=== PATIENT | female | born 1980 | race Caucasian/White ===

== ENCOUNTER 2017-12-22 19:58 | Emergency (ER) | payer OTHER ==
[~2017-12-22] VITALS: Ht 165.1 cm; Wt 85.3 kg
[2017-12-22 19:58] VITALS: BP_SYST 109
[2017-12-22 21:30] VITALS: BP_SYST 112
--- NOTE | 2017-12-22 21:45 | NUR ---
PT stated "I don't want to wait any longer I'm going someplace else" Patient left without being seen.
== END 2017-12-23 01:58 | disposition left against medical advice (07) ==
LOC: SED 19:58
DX: S61.219A Laceration without foreign body of unspecified finger without damage to nail, initial encounter (principal); Z53.21 Procedure and treatment not carried out due to patient leaving prior to being seen by health care provider; W26.8XXA Contact with other sharp object(s), not elsewhere classified, initial encounter; Y93.89 Activity, other specified; Y92.89 Other specified places as the place of occurrence of the external cause; Y99.8 Other external cause status

== ENCOUNTER 2019-08-10 10:58 | Emergency (ER) | payer OTHER ==
[~2019-08-10] VITALS: Ht 165.1 cm; Wt 75.7 kg
[2019-08-10 10:58] VITALS: BP_SYST 115
--- NOTE | 2019-08-10 11:00 | NUR ---
BROUGHT BACK TO BED #7 AND TRIAGED. REPORT GIVEN TO FANTA
--- NOTE | 2019-08-10 11:03 | NUR ---
DR SEGURA AT BEDSIDE FOR EVALUATION
--- NOTE | 2019-08-10 11:05 | NUR ---
Pt AAOx4 presents to ED referred from urgent care c/o SOB, cough, difficulty talking, nausea x 3 days with acute exacerbation of symptoms today. Skin pink dry and warm, tachypneic, labored breathing. No other injuries/complaints per pt/noted. at bedside. Will continue to monitor.
[2019-08-10] MEDS ORDERED: IPRATROPIUM/ALBUTEROL SULFATE 3 ML AMPUL.NEB (DUONEB) INH ONE (11:15)
[2019-08-10] MEDS ORDERED: methylPREDNISolone SOD SUCC/PF 62.5 MG/ML VIAL IM ONE (11:15)
--- NOTE | 2019-08-10 11:15 | NUR ---
Pt c/o chest tightness and anxiety s/p solu-medrol IM administration. Pt sitting in high [place] tachypneic. Dr. Todd notified. Orders to be received.
[2019-08-10] MEDS ORDERED: IPRATROPIUM/ALBUTEROL SULFATE 3 ML AMPUL.NEB (DUONEB) ONE (11:19)
[2019-08-10] MEDS ORDERED: KETOROLAC TROMETHAMINE 30 MG VIAL IVP ONE (11:30)
[2019-08-10] MEDS ORDERED: LORazepam 2 MG/ML VIAL IVP ONE (11:30)
--- NOTE | 2019-08-10 11:30 | NUR ---
ER Dr. Todd at bedside re-evaluating patient.
[2019-08-10 11:39] LABS: STREPTOCOCCUS A SCREEN (RAPID) NEGATIVE (NEGATIVE)
[2019-08-10 11:43] LABS: INFLUENZA A&B ANTIGEN SCREEN NEGATIVE FOR A & B (NEGATIVE)
[2019-08-10 11:46] LABS: BASOPHILS # (AUTO) 0.1 K/uL (0.0-0.2); BASOPHILS % (AUTO) 0.8 % (0.0-2.0); EOSINOPHILS # (AUTO) 0.1 K/uL (0.0-0.4); EOSINOPHILS % (AUTO) 1.2 % (0.0-4.0); HEMATOCRIT 37.5 % (36-48); HEMOGLOBIN 12.5 g/dL (12.0-16.0); LYMPHOCYTES # (AUTO) 1.9 K/uL (1.0-5.5); LYMPHOCYTES % (AUTO) 27.9 % (20.5-51.5); MEAN CORPUSCULAR HEMOGLOBIN 28 pg (27-31); MEAN CORPUSCULAR HGB CONC 33 % (32-36); MEAN CORPUSCULAR VOLUME 84 fL (79.0-98.0); MONOCYTES # (AUTO) 0.4 K/uL (0.0-1.0); MONOCYTES % (AUTO) 5.6 % (1.7-9.3); NEUTROPHILS # (AUTO) 4.5 K/uL (1.8-7.7); NEUTROPHILS % (AUTO) 64.5 % (40.0-70.0); PLATELET COUNT (AUTO) 234 K/uL (130-430); RED BLOOD CELL COUNT(AUTO) 4.48 MIL/uL (4.2-6.2); RED CELL DISTRIBUTION WIDTH 15.4 % (9.0-15.0)
--- NOTE | 2019-08-10 12:25 | NUR ---
Daniella rosa maria in [facility] - 08/10/19 at 1225 by [email or web address] assumed
--- NOTE | 2019-08-10 13:39 | NUR ---
Patient given written and verbal discharge instructions and verbalizes understanding. ER MD discussed with patient the results and treatment provided. Patient in stable condition. ID arm band removed. IV catheter removed intact and dressing applied, no active bleeding. Rx of naproxen, albuterol, prednisone given. Patient educated on pain management and to follow up with PMD. Pain Scale . Opportunity for questions provided and answered. Medication side effect fact sheet provided.
[2019-08-10 13:41] VITALS: BP_SYST 123
== END 2019-08-10 13:41 | disposition home or self-care (01) ==
LOC: SED 10:58
DX: R07.9 Chest pain, unspecified (principal); J02.8 Acute pharyngitis due to other specified organisms; F41.9 Anxiety disorder, unspecified; Z90.49 Acquired absence of other specified parts of digestive tract; B97.89 Other viral agents as the cause of diseases classified elsewhere; R51 Headache
CPT/HCPCS: 36415; 71045; 84484; 85025; 85379; 86308; 86403; 86710; 87081; 93005; 94640; 96372; 96374; 96375; 99284; J1885; J2060; J2930; J7620

== ENCOUNTER 2020-09-25 08:14 | Emergency (ER) | payer OTHER ==
[~2020-09-25] VITALS: Ht 165.1 cm; Wt 78.0 kg
[2020-09-25 08:15] VITALS: BP_SYST 116
== END 2020-09-25 10:53 | disposition home or self-care (01) ==
LOC: SED 08:14
DX: S09.90XA Unspecified injury of head, initial encounter (principal); M62.838 Other muscle spasm; W18.39XA Other fall on same level, initial encounter; Y93.89 Activity, other specified; Y92.89 Other specified places as the place of occurrence of the external cause; Y99.8 Other external cause status
CPT/HCPCS: 70450-TC; 72125-TC; 76376; 99285

== ENCOUNTER 2022-11-12 15:21 | Emergency (ER) | payer BC, OTHER ==
[~2022-11-12] VITALS: Ht 165.1 cm; Wt 81.2 kg
[2022-11-12 15:42] VITALS: BP_SYST 130
[2022-11-12] MEDS ORDERED: ONDANSETRON HCL 4 MG/2 ML VIAL IVP ONE ×2 (15:45→17:15)
[2022-11-12] MEDS ORDERED: KETOROLAC TROMETHAMINE 30 MG VIAL IVP ONE (15:45)
[2022-11-12] MEDS ORDERED: NACL 0.9% 1,000 ML IV ONE (15:45)
--- NOTE | 2022-11-12 15:45 | NUR ---
Placed in room 5 . Placed on laboratory monitor, blood pressure machine and pulse oximeter. To gown for exam. Side rails up. Report given to CLARE BLAS.
--- NOTE | 2022-11-12 15:47 | NUR ---
DR. GILL AT BEDSIDE TO ASSESS PT.
[2022-11-12 16:17] LABS: BASOPHILS # (AUTO) 0.1 K/uL (0.0-0.2); BASOPHILS % (AUTO) 0.9 % (0.0-2.0); EOSINOPHILS # (AUTO) 0.1 K/uL (0.0-0.4); HEMOGLOBIN 13.8 g/dL (12.0-16.0); LYMPHOCYTES # (AUTO) 1.9 K/uL (1.0-5.5); LYMPHOCYTES % (AUTO) 31.8 % (20.5-51.5); MEAN CORPUSCULAR HEMOGLOBIN 30 pg (27-31); MEAN CORPUSCULAR HGB CONC 34 % (32-36); MEAN CORPUSCULAR VOLUME 90 fL (79.0-98.0); MONOCYTES # (AUTO) 0.3 K/uL (0.0-1.0); NEUTROPHILS # (AUTO) 3.7 K/uL (1.8-7.7); NEUTROPHILS % (AUTO) 61.3 % (40.0-70.0); PLATELET COUNT (AUTO) 225 K/uL (130-430); RED BLOOD CELL COUNT(AUTO) 4.53 MIL/uL (4.2-6.2); RED CELL DISTRIBUTION WIDTH 12.1 % (9.0-15.0)
--- NOTE | 2022-11-12 16:53 | NUR ---
pt presents to ed c/o possible food poisoning, pt is c/o lower left abd pain that shoots up to middle abd sharp pain according to pt is grimicing and moaning. vss, even unlabored respirations, MD notified of pt pain level
[2022-11-12 16:55] LABS: CREATININE 0.65 mg/dL (0.55-1.30)
--- NOTE | 2022-11-12 16:57 | NUR ---
DR ODOM ORDERED ROCHEPHIN DUE TO LEUKOCYTES FOUND ON HER DIPSTICK. STATED NO NEED FOR BLOOD CULTURES. WILL MEDICATED ORDERED.
[2022-11-12 17:00] LABS: ALBUMIN 3.9 g/dL (3.4-4.8); TOTAL BILIRUBIN 0.5 mg/dL (0.0-1.0)
[2022-11-12] MEDS ORDERED: cefTRIAXone 1 GM in D5W 50 ML IV ONE (17:00)
[2022-11-12] MEDS ORDERED: cefTRIAXone 1 GM VIAL ONE (17:03)
[2022-11-12] MEDS ORDERED: MORPHINE 4 MG INJ. 4 MG/ML VIAL IVP ONE (17:15)
[2022-11-12 17:16] LABS: BILIRUBIN,URINE NEGATIVE (NEGATIVE); CLARITY/URINE CLEAR (CLEAR); COLOR,URINE YELLOW (YELLOW); GLUCOSE,URINE NEGATIVE (NEGATIVE); KETONES,URINE NEGATIVE (NEGATIVE); LEUKOCYTE ESTERASE ,URINE TRACE (NEGATIVE); NITRITE, URINE NEGATIVE (NEGATIVE); PROTEIN URINE NEGATIVE (NEGATIVE); UROBILINOGEN,URINE 0.2 (0.2-1.0)
[2022-11-12 17:22] VITALS: BP_SYST 118
[2022-11-12 17:29] LABS: BLOOD, URINE TRACE (NEGATIVE)
[2022-11-12 17:39] LABS: RBC,URINE 0-3 /HPF (0-3)
[2022-11-12 17:40] LABS: BACTERIA,URINE MANY /HPF (None Seen)
[2022-11-12] MEDS ORDERED: SULF1TAB48 PO (17:51)
[2022-11-12] MEDS ORDERED: IBUP-1971 PO (17:51)
[2022-11-12] MEDS ORDERED: PHEN-726 PO (17:51)
[2022-11-12] MEDS ORDERED: ONDA-8 TL (17:51)
--- NOTE | 2022-11-12 18:25 | NUR ---
Patient given written and verbal discharge instructions and verbalizes understanding. ER MD discussed with patient the results and treatment provided. Patient in stable condition. ID arm band removed. IV catheter removed intact and dressing applied, no active bleeding. Rx of IBUPROFEN, ZOFRAN, PYRIDIUM, AND BACTRIM given. Patient educated on pain management and to follow up with PMD. Opportunity for questions provided and answered. Medication side effect fact sheet provided.
== END 2022-11-12 18:23 | disposition home or self-care (01) ==
LOC: SED 15:21
DX: N39.0 Urinary tract infection, site not specified (principal); R11.10 Vomiting, unspecified; R10.30 Lower abdominal pain, unspecified; Z79.899 Other long term (current) drug therapy
CPT/HCPCS: 99284; 96365; 96375; 96361; 80053; 81000; 84703; 83690; 85025; 87086; 36415; J0696; J1885; J2405; J2270; J7060; J7030

== ENCOUNTER 2023-01-28 20:51 | Emergency (ER) | payer BC ==
[~2023-01-28] VITALS: Ht 165.1 cm; Wt 56.7 kg
[~2023-01-28 20:51] MED LIST: IBUP-1971 PO; ONDA-8 TL; PHEN-726 PO; SULF1TAB48 PO
[2023-01-28 21:00] VITALS: BP_SYST 122
--- NOTE | 2023-01-28 22:52 | NUR ---
Patient to [facility] for evaluation. Side rails up. Report given to EUGENIO BUCKNER.
--- NOTE | 2023-01-28 22:53 | NUR ---
Pt bib self from home, ambulated to [facility]. Pt A&Ox4, able to make needs known. Pt c/o right shoulder pain that radiates to right elbow and across upper back. Pt rates pain 9/10. Pt states she injured right shoulder lifting a heavy oven door on 01/23/2023, heard a "pop" and pain is getting worse. Pt states she went to Urgent Care in the morning and was given a Toradol shot, pt states medication was ineffective. Pt states she took Tylenol [id number] at 1600. Pt denies fever and chills, SOB and chest pain. Pt denies N/V/D. Safety measures in place.
--- NOTE | 2023-01-28 22:56 | NUR ---
ER Dr. Morel at bedside examining patient.
[2023-01-28] MEDS ORDERED: PRED20TA PO (22:59)
[2023-01-28] MEDS ORDERED: HYDR-3917 PO (22:59)
[2023-01-28] MEDS ORDERED: IBUP-1969 PO (22:59)
[2023-01-28] MEDS ORDERED: predniSONE 20 MG TABLET PO ONE (23:00)
[2023-01-28 23:17] VITALS: BP_SYST 120
--- NOTE | 2023-01-28 23:17 | NUR ---
dPatient given written and verbal discharge instructions and verbalizes understanding. ER Dr Morel discussed with patient the results and treatment provided. Patient in stable condition. ID arm band removed. Rx of [place], Motrin, Prednisone given. Patient educated on pain management and to follow up with PMD. Pain Scale 2/10. Opportunity for questions provided and answered. Medication side effect fact sheet provided.
[2023-01-29] MEDS ORDERED: OXYC-128 PO (17:41)
== END 2023-01-28 23:17 | disposition home or self-care (01) ==
LOC: SED 20:51
DX: M77.8 Other enthesopathies, not elsewhere classified (principal); M25.511 Pain in right shoulder; Z79.899 Other long term (current) drug therapy
CPT/HCPCS: 99283; J7512

== ENCOUNTER 2024-07-27 00:22 | Inpatient (IN) | payer BC ==
[~2024-07-27] VITALS: Ht 162.6 cm; Wt 72.6 kg
[~2024-07-27 00:22] MED LIST changes: +HYDR-3917 PO; +IBUP-1969 PO; +OXYC-128 PO; +PRED20TA PO
[2024-07-27 00:30] VITALS: BP_SYST 157; PULSE 87; RESP 18; O2SAT 98
[2024-07-27] MEDS ORDERED: DIPHENHYDRAMINE INJ 50 MG/ML VIAL ONE ×2 (00:37→00:40)
[2024-07-27] MEDS ORDERED: HALOPERIDOL LACTATE 5 MG/ML VIAL ONE (00:37)
[2024-07-27] MEDS: DIPHENHYDRAMINE INJ 50 MG/ML VIAL IVP ONE ×3 (00:44→02:45)
[2024-07-27] MEDS: NACL 0.9% 1,000 ML IV ONE ×2 (00:44→05:10)
[2024-07-27] MEDS: HALOPERIDOL LACTATE 5 MG/ML VIAL IVP ONE ×3 (00:44→02:44)
[2024-07-27] MEDS: LORazepam 2 MG/ML VIAL IVP ONE (02:25)
[2024-07-27 02:54] LABS: BASOPHILS % (AUTO) 0.3 % (0.0-2.0); EOSINOPHILS % (AUTO) 0.2 % (0.0-4.0); HEMATOCRIT 35.9 % (36-48); LYMPHOCYTES # (AUTO) 1.6 K/uL (1.0-5.5); LYMPHOCYTES % (AUTO) 20.4 % (20.5-51.5); MEAN CORPUSCULAR HEMOGLOBIN 28 pg (27-31); MEAN CORPUSCULAR HGB CONC 33 % (32-36); MEAN CORPUSCULAR VOLUME 83 fL (79.0-98.0); MONOCYTES # (AUTO) 0.4 K/uL (0.0-1.0); MONOCYTES % (AUTO) 4.8 % (1.7-9.3); NEUTROPHILS # (AUTO) 5.9 K/uL (1.8-7.7); NEUTROPHILS % (AUTO) 74.3 % (40.0-70.0); PLATELET COUNT (AUTO) 245 K/uL (130-430); RED BLOOD CELL COUNT(AUTO) 4.32 MIL/uL (4.2-6.2); RED CELL DISTRIBUTION WIDTH 15.2 % (9.0-15.0); WHITE BLOOD COUNT (AUTO) 7.9 K/uL (4.8-10.8)
[2024-07-27 03:02] LABS: ANION GAP 14 (5-15); CALCIUM 8.7 mg/dL (8.4-11.0); CARBON DIOXIDE 22 mmol/L (23-29); CHLORIDE 110 mmol/L (98-107); CREATINE KINASE, TOTAL 123 U/L (26-192); CREATININE 0.81 mg/dL (0.55-1.30); GFR AFRICAN AMERICAN 99 mL/min (>90); GLUCOSE 101 mg/dL (74-106); POTASSIUM 3.4 mmol/L (3.5-5.1); SODIUM SERUM 146 mmol/L (136-145); UREA NITROGEN, BLOOD 9 mg/dL (8-21)
[2024-07-27 03:04] LABS: GFR NON AFRICAN-AMERICAN 82 mL/min (>90)
[2024-07-27] MEDS: ZIPRASIDONE HCL 20 MG CAPSULE (GEODON) PO ONE (03:15)
[2024-07-27] MEDS: KETAMINE HCL IN 0.9 % NACL 50 MG/5 ML SYRINGE IVP ONE (03:54)
[2024-07-27 04:43] LABS: BARBITURATE, URINE NEGATIVE (NEG <=200); BENZODIAZEPINE, URINE NEGATIVE (NEG <=150); CANNABINOID, URINE NEGATIVE (NEG <=50); COCAINE, URINE NEGATIVE (NEG <=150); METHAMPHETAMINES SCREEN,URINE NEGATIVE (NEG <=500); OPIATE, URINE NEGATIVE (NEG <=100); PHENCYCLIDINE SCREEN,URINE NEGATIVE (NEG <=25); UR TRICYCLIC ANTIDEPRESSANTS NEGATIVE (NEG <=300); URINE AMPHETAMINE NEGATIVE (NEG <=500); URINE METHADONE NEGATIVE (NEG <=200); URINE OXYCODONE SCREEN NEGATIVE (NEG <=100)
[2024-07-27] MEDS ORDERED: LORazepam 2 MG/ML VIAL IVP PRN ×2 (05:45→11:45)
[2024-07-27] MEDS: D5/0.45 NS 1,000 ML IV ONE (06:38)
[2024-07-27 10:49] VITALS: BP_SYST 98; PULSE 55; RESP 14; TEMP 98.4; O2SAT 100
[2024-07-27] MEDS ORDERED: predniSONE 20 MG TABLET PO SCH (11:45)
[2024-07-27] MEDS ORDERED: ONDANSETRON 4 MG ODT TAB TL PRN (11:45)
[2024-07-27] MEDS ORDERED: IBUPROFEN 800 MG TABLET PO PRN (11:45)
[2024-07-27] MEDS ORDERED: NALOXONE HCL 0.4 MG/ML AMP (NARCAN) IVP PRN (11:45)
[2024-07-27] MEDS ORDERED: IBUPROFEN 600 MG TABLET PO PRN (11:45)
[2024-07-27] MEDS ORDERED: OXYCODONE/ACETAMINOPHEN 5-325 TABLET PO PRN (11:45)
[2024-07-27 12:00] VITALS: BP_SYST 101; PULSE 54; RESP 20; TEMP 98.6; O2SAT 97
[2024-07-27] MEDS: PHENAZOPYRIDINE HCL 100 MG TABLET PO SCH (15:30)
[2024-07-27 16:00] VITALS: BP_SYST 105; PULSE 75; RESP 20; TEMP 99.1; O2SAT 97
[2024-07-27 20:00] VITALS: BP_SYST 103; PULSE 82; RESP 18; TEMP 97.2; O2SAT 97
[2024-07-27] MEDS: HYDROcodone/ACETAMIN 5-325 MG TAB (NORCO/ VICODIN) PO PRN (20:25)
[2024-07-27] MEDS: SULFAMETHOXAZOLE/TRIMETHOPR DS 1 TABLET PO SCH (20:25)
[2024-07-28] VITALS: BP_SYST 107; PULSE 71; RESP 18; TEMP 98.4; O2SAT 96
[2024-07-28 07:42] LABS: BASOPHILS % (AUTO) 0.6 % (0.0-2.0); EOSINOPHILS % (AUTO) 0.7 % (0.0-4.0); HEMOGLOBIN 10.9 g/dL (12.0-16.0); LYMPHOCYTES # (AUTO) 1.9 K/uL (1.0-5.5); LYMPHOCYTES % (AUTO) 41.1 % (20.5-51.5); MEAN CORPUSCULAR HEMOGLOBIN 27 pg (27-31); MEAN CORPUSCULAR HGB CONC 33 % (32-36); MEAN CORPUSCULAR VOLUME 83 fL (79.0-98.0); MONOCYTES # (AUTO) 0.3 K/uL (0.0-1.0); NEUTROPHILS # (AUTO) 2.4 K/uL (1.8-7.7); NEUTROPHILS % (AUTO) 51.6 % (40.0-70.0); PLATELET COUNT (AUTO) 199 K/uL (130-430); RED BLOOD CELL COUNT(AUTO) 3.99 MIL/uL (4.2-6.2); RED CELL DISTRIBUTION WIDTH 14.9 % (9.0-15.0); WHITE BLOOD COUNT (AUTO) 4.7 K/uL (4.8-10.8)
[2024-07-28 08:00] VITALS: BP_SYST 111; PULSE 63; RESP 18; TEMP 98.2; O2SAT 98
[2024-07-28 08:37] LABS: CALCIUM 8.2 mg/dL (8.4-11.0); CREATININE 0.71 mg/dL (0.55-1.30); POTASSIUM 3.4 mmol/L (3.5-5.1); TOTAL BILIRUBIN 0.3 mg/dL (0.0-1.0)
[2024-07-28 12:00] VITALS: BP_SYST 92; PULSE 59; RESP 18; TEMP 97.4; O2SAT 96
[2024-07-28] MEDS: POTASSIUM CHLORIDE 20 MEQ TABLET.ER PO ONE (15:12)
[2024-07-28 16:00] VITALS: BP_SYST 95; PULSE 61; RESP 18; TEMP 98; O2SAT 98
[2024-07-28 16:45] VITALS: BP_SYST 100; PULSE 61; RESP 16; TEMP 97.8; O2SAT 96
== END 2024-07-28 17:20 | disposition home or self-care (01) | DRG 641 ==
LOC: SED 00:22 → SMU 05:35
PROVIDERS: ADMIT Preventive Medicine Preventive Medicine/Occupational Environmental Medicine; ATTEND Preventive Medicine Preventive Medicine/Occupational Environmental Medicine
DX: E87.6 Hypokalemia (principal); E87.0 Hyperosmolality and hypernatremia; G89.29 Other chronic pain; M79.7 Fibromyalgia; M54.9 Dorsalgia, unspecified; G24.9 Dystonia, unspecified; T50.995A Adverse effect of other drugs, medicaments and biological substances, initial encounter; Y92.89 Other specified places as the place of occurrence of the external cause
CPT/HCPCS: 36415; 80048; 80053; 80307; 82550; 84484; 85025; 96374; 96375; 97116-GP; 97530-GP; 99285; J1200; J1630; J2060; J7030